=== PATIENT | female | born 1955 | race Caucasian/White ===

== ENCOUNTER 2022-07-26 06:28 | Day surgery (SDC) | payer BC, SELFPAY ==
[2022-07-26] MEDS: Tropicam./Phenyleph. (1/2.5%) 5 ML BTL OS ×3 (07:19→07:35)
[2022-07-26 07:20] VITALS: BP 150/76; PULSE 67; RESP 18; TEMP 36.6; O2SAT 96
--- NOTE | 2022-07-26 07:44 | ANES.PREOP_ITS ---
General Info Date of Service Date Performed: 07/26/22 Height: 4 ft 7 in Weight: 64.6 kg Body Mass Index (BMI): 33.0 Surgical Procedure: Operation Date: 07/26/22 08:40 Proposed Procedure Side Surgeon p Cataract Extraction with IOL Implant Left Elier Gomez MD Meds Allergies and Home Medications Allergies Allergy/AdvReac Type Severity Reaction Status Date / Time No Known Allergies Allergy Unverified 07/26/22 07:32 Home Medication Medication Instructions Recorded atorvastatin 40 mg tablet 40 mg PO DAILY 07/23/22 buspirone 5 mg tablet 5 mg PO DAILY 07/23/22 diltiazem HCl 120 mg 120 mg PO DAILY 07/23/22 capsule,extended release 24 hr, controlled lisinopril 2.5 mg tablet 5 mg PO DAILY 07/23/22 metoprolol succinate 100 mg 100 mg PO DAILY 07/23/22 tablet,extended release 24 hr calcium carbonate 600 mg-vitamin 1 tab PO DAILY 07/26/22 D3 5 mcg (200 unit) tablet Current Visit Medications: Current Medications Generic Name Dose Route Start Last Admin Trade Name Freq PRN Reason Stop Dose Admin Acetaminophen 1,000 mg 07/26/22 06:00 Acetaminophen 500 Mg Tab PO Q4H PRN PRN Miscellaneous Medication 0 ml 07/26/22 06:00 07/26/22 07:35 Tropicam./Phenyleph. (1/2.5%) 5 Ml Btl OS 1 drp DIRECTED [facility] Administration Miscellaneous Medication 0 ml 07/26/22 06:00 Prednisolone 1%, Moxifloxacin 0.5%, Nepafenac 0.1% 5ml Btl OS DIRECTED SIMON Tetracaine HCl 0 ml 07/26/22 06:00 Tetracaine 0.5% 4 Ml Btl OS DIRECTED [facility] PFS Active Problems Active Problems: Problem Status Onset Code Nuclear sclerotic cataract of left eye H25.12 Posterior subcapsular age-related cataract of left eye H25.042 Medical History Medical History (Updated 07/26/22 @ 07:32 by Monique Blair) Abdominal distension Atypical chest pain Pt. 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 Nicotine dependence Obesity GREG (obstructive sleep apnea) Psychophysiologic insomnia Snoring SVT (supraventricular tachycardia) Umbilical hernia with obstruction, without gangrene Urinary incontinence Surgical History Surgical History H/O hernia repair H/O ventral hernia repair History of cardiac cath 03/19/2021 History of carpal tunnel surgery History of intestinal surgery diverticular History of tonsillectomy and adenoidectomy Hx of colonoscopy Hx of tubal ligation S/P appendectomy Tobacco Smoking/Tobacco Use Status: Former Tobacco Use Alcohol Alcohol Intake: never Substance Use Substance use: Never Substance use type: does not use Vital Signs and Lab Results Vital Signs Most Recent Vital Signs in EMR: Most Recent Vital Signs Temp Pulse Resp BP Pulse Ox 36.6 C 67 18 150/76 H 96 07/26/22 07:20 07/26/22 07:20 07/26/22 07:20 07/26/22 07:20 07/26/22 07:20 Lab Results Blood Type / Crossmatch: No Data to Display Complete Blood Count: No Data to Display Complete Metabolic Panel: No Data to Display Liver Function Panel: No Data to Display Coagulation Panel: No Data to Display Cardiac Panel: No Data to Display Arterial Blood Gas: No Data to Display Venous Blood Gas: No Data to Display Pancreas Panel: No Data to Display Thyroid Panel: No Data to Display Infectious Disease: No Data to Display Blood Cultures: No Data to Display Toxicology Panel: No Data to Display Anesthesia Assessment and Plan Anesthesia History Personal History: No History of Anesthesia Complications Family History: No Family History of Anesthesia Complications Exercise Tolerance Exercise Tolerance: Metabolic Equivalents>4 Pertinent Negatives Pertinent Negatives: No Symptoms of GERD Cardiac & Pulmonary Exam Cardiac Exam: Normal S1/S2 Heart Sounds Pulmonary Exam: Clear Bilateral Breath Sounds Implantable Cardiac Device Does patient have a Pacemaker or an ICD?: No Airway Exam Known Difficult Airway: No Mallampati Class: 4 Mouth Opening: Narrow (< 3cm) Thyromental Distance: Greater than 3 cm Neck Range of Motion: Full ROM Neck Circumference: Thick Teeth Condition: Edentulous ASA Classification ASA Score: ASA 2 Emergency Case?: No NPO Status NPO Status: NPO Clears >2 hours, Solids >8 hours Anesthesia Plan Resuscitation Status: Full Code Anesthesia Technique: MAC Anesthesia Airway Planned: Natural Airway Monitors Used: Standard Monitors
[2022-07-26] MEDS: Tetracaine 0.5% 4 ML BTL OS (08:21)
[2022-07-26 08:22] VITALS: BMI 33.0
[2022-07-26] MEDS: Lidocaine 1% Pres-Free 5 ML VIAL (08:31)
[2022-07-26] MEDS: Phenylephrine/Lidocaine (15/10) MG/ML 1 ML VIAL (08:31)
[2022-07-26] MEDS: Balanced Salt Soln.-PLUS 500 ML BAG (08:32)
[2022-07-26] MEDS: Duovisc Viscoelastic System EACH 1 EACH (08:32)
[2022-07-26] MEDS: Povidone-Iodine Ophth 30 ML BTL (08:33)
[2022-07-26 08:48] VITALS: BP 98/71; PULSE 70; RESP 18; TEMP 36.1; O2SAT 98
--- NOTE | 2022-07-26 08:48 | W.PM.DSUDISC ---
Date of service: 07/26/22 Time of Service: 08:48 Discharge Plan Disposition Patient Disposition: Home Discharge Details Attending Provider: Elier Gomez Primary Care Provider: Maria Guadalupe Sanchez Home Meds and New Rx's Prescriptions: No Action atorvastatin 40 mg Tablet 40 mg PO DAILY buspirone 5 mg Tablet 5 mg PO DAILY metoprolol succinate 100 mg Tablet Extended Release 24 Hr 100 mg PO DAILY diltiazem HCl 120 mg Capsule,Ext.Rel 24h Degradable 120 mg PO DAILY lisinopril 2.5 mg Tablet 5 mg PO DAILY calcium carbonate-vitamin D3 [Calcium + D] 600 mg-5 mcg (200 unit) Tablet 1 tab PO DAILY Discharge Instructions Stand Alone Forms: Post-op Topical Cataract, [employer] (DSU) Discharge Orders Discharge Orders: Discharge Order (Routine); Ordered 07/26/22 Ordered By: Elier Gomez DS: Diagnosis Discharge Diagnosis (1) Nuclear sclerotic cataract of left eye: Status: Resolved (2) Posterior subcapsular age-related cataract of left eye: Status: Resolved
--- NOTE | 2022-07-26 08:48 | W.PM.OP ---
Date of service: 07/26/22 Time of Service: 08:48 Operative Note Operative Note DATE OF PROCEDURE: 07/26/22 PRE-OP DIAGNOSIS: Nuclear/posterior subcapsular cataract, left eye POST-OP DIAGNOSIS: same PROCEDURE: Cataract extraction using phacoemulsification with intraocular lens implant, left eye SURGEON: Elier Gomez ANESTHESIA TYPE: Local By Surgeon and MAC Refer to Anesthesia Record PATHOLOGY: none sent COMPLICATIONS: None Patient was transported to: same day Patient's condition: stable Implants: Del and Del Tecnis Eyhance [id number] Indications: Progressive decreased vision due to cataract, left eye Procedure Description: CATARACT SURGERY OPERATIVE REPORT PREOPERATIVE DIAGNOSIS: 1. Nuclear/posterior subcapsular cataract, left eye POSTOPERATIVE DIAGNOSIS: Same OPERATION: 1. Cataract extraction using phacoemulsification with posterior chamber intraocular lens implant, left eye. IOL: IOL Cracking Unit Operator/Model: Del & Del Tecnis Eyhance DIB00 IOL Power: + 16.5 diopters IOL Serial Number: [id number] Optic Diameter: 6.0 mm Haptic/Overall Diameter: 13.0 mm PHACO INFO: Akin Sol Voltaicsurion Vision System with OZil and Active Fluidics Cumulative Dispersed Energy (CDE): 8.07 seconds SURGEON: Elier Gomez MD, MYNOR ANESTHESIA: Monitored A [facility] (MAC), with local sub-tenon's anesthetic infiltration COMPLICATIONS: None SPECIMENS: None INDICATIONS FOR PROCEDURE: The patient is a 67-year-old lady with history of diminished visual acuity in her left eye secondary to the development of nuclear/posterior subcapsular cataract. She has a history of myopia and desires to remain myopic postoperatively. Postoperative refractive target is -2.50 diopters. She wants to be able to read without glasses postoperatively. The option of cataract surgery was offered to the patient and she wished to proceed. PROCEDURE: The correct surgical eye was identified and marked as the left eye and the pupil was dilated in the preoperative area using mydriatics and cycloplegics. The dilated pupil size was 5.5 mm. The patient elected to proceed without oral sedation. The patient was brought to the operating room where cardiopulmonary monitoring was instituted and surgical time-out was performed, confirming the correct operative eye and IOL power. Topical anesthesia was administered and ophthalmic povidone-iodine 5% was instilled into the conjunctival fornices. Lidocaine gel was applied to the cornea and the eugenio-ocular area was prepped with Betadine 10% solution and draped in the usual sterile fashion for intraocular surgery, including an aperture drape. A Tegaderm transparent film dressing was cut in half and used to cover the lashes and lid margins. Care was taken to sequester the lashes and lid margins under the Tegaderm dressing. A lid speculum was placed between the lids of the operative eye and the Akin LuxOR Revalia operating microscope was maneuvered into position. Aiden scissors were then used to make a conjunctival buttonhole approximately 6mm posterior to the limbus in the inferonasal quadrant. Blunt dissection was carried out to expose bare sclera, and a blunt-tipped sub-tenon?s anesthesia cannula was introduced and passed posteriorly along the globe where non-preserved plain lidocaine was injected into posterior sub-Tenon?s space. A sideport knife was used to make a paracentesis port superiorly/superiortemporally. Intraocular phenylephrine/lidocaine was injected int the anterior chamber.. The anterior chamber was filled with viscoelastic. A keratome knife was used to construct a 2-plane near-clear corneal tunnel extending 2.0mm into clear cornea temporally. A flap was raised on the anterior capsule and capsulorhexis forceps were used to complete a continuous curvilinear capsulorhexis of 5.5 mm. Balanced salt solution was then used to perform cortical cleaving hydrodissection and nuclear hydrodelineation until the lens could be freely rotated within the capsular bag. The lens nucleus was then disassembled and removed within the capsular bag and iris plane using phacoemulsification. Residual cortical material was removed using the 45-degree angled silicone I/A tip with 0.3mm port. The posterior capsule was carefully polished to remove as much residual lens epithelial cells as safely possible. The capsular bag was then inflated and the anterior chamber deepened with viscoelastic. The lens implant described above was inserted into the capsular bag using the Del and Del Simplicity pre-loaded injector. . A Kuglen hook was used to dial the IOL into position. Residual viscoelastic was then removed first from posterior to the IOL, then from the anterior chamber using the I/A handpiece. The lens implant was noted to center nicely within the capsular bag. The incisions were stromally hydrated, and the anterior chamber was reformed using BSS. Then 0.5cc of moxifloxacin 1.0mg/ml were injected into the capsular bag and anterior chamber. The incisions were checked with a Weck spear and found to be secure. Several drops of ophthalmic povidone-iodine 5% were then applied to the eye followed by two drops of Imprimis combination prednisolone/moxifloxacin/nepafenac solution. The drapes were removed and a clear plastic protective eye shield was placed over the eye. The patient was then returned to Same Day Surgery in stable condition.
--- NOTE | 2022-07-26 09:06 | W.ANESPOSTOP ---
Postoperative Evaluation Date, Time and Location Date Performed: 07/26/22 Time Performed: 09:01 Patient Location: Day Surgery Unit Vital Signs Most Recent Imported Vital Signs: Most Recent Vital Signs Temp Pulse Resp BP Pulse Ox 36.1 C L 70 18 98/71 L 98 07/26/22 08:48 07/26/22 08:48 07/26/22 08:48 07/26/22 08:48 07/26/22 08:48 Pain Score Most Recent Pain Score: Most Recent Pain Score Pain Level 0 07/26/22 08:48 Assessment Mental Status: Awake (Alert & Oriented to Patient Baseline) Airway and Respiratory Function: Patent airway with normal (patient baseline) respiratory exam Cardiovascular Function: Hemodynamically Stable Hydration Status: Adequately Hydrated Nausea & Vomiting: No Nausea or Vomiting Pain: Pt. Denies Any Pain Peripheral Nerve Block: Patient did not receive a nerve block
== END 2022-07-26 09:12 | disposition home or self-care (01) ==
LOC: SUR 06:29
PROVIDERS: PCP Internal Medicine; Visit Provider Ophthalmology
PROC: (CPT 66984; principal; 2022-07-26 08:30)
DX: H25.042 Posterior subcapsular polar age-related cataract, left eye
CPT/HCPCS: 66984; V2632

== ENCOUNTER 2022-08-09 07:25 | Day surgery (SDC) | payer BC, SELFPAY ==
--- NOTE | 2022-08-09 08:36 | W.ANESPRE ---
General Info Date of Service Date Performed: 08/09/22 Height: 4 ft 7 in Weight: 64.6 kg Body Mass Index (BMI): 33.0 Surgical Procedure: Operation Date: 08/09/22 10:40 Proposed Procedure Side Surgeon p Cataract Extraction with IOL Implant Right Elier Gomez MD Meds Allergies and Home Medications Allergies Allergy/AdvReac Type Severity Reaction Status Date / Time No Known Allergies Allergy Unverified 08/09/22 08:41 Home Medication Medication Instructions Recorded atorvastatin 40 mg tablet 40 mg PO DAILY 07/23/22 buspirone 5 mg tablet 5 mg PO DAILY 07/23/22 diltiazem HCl 120 mg 120 mg PO DAILY 07/23/22 capsule,extended release 24 hr, controlled lisinopril 2.5 mg tablet 5 mg PO DAILY 07/23/22 metoprolol succinate 100 mg 100 mg PO DAILY 07/23/22 tablet,extended release 24 hr calcium carbonate 600 mg-vitamin 1 tab PO DAILY 07/26/22 D3 5 mcg (200 unit) tablet Current Visit Medications: Current Medications Generic Name Dose Route Start Last Admin Trade Name Freq PRN Reason Stop Dose Admin Acetaminophen 1,000 mg 08/09/22 06:26 Acetaminophen 500 Mg Tab PO Q4H PRN PRN Miscellaneous Medication 0 ml 08/09/22 06:26 Prednisolone 1%, Moxifloxacin 0.5%, Nepafenac 0.1% 5ml Btl OD DIRECTED [facility] Miscellaneous Medication 0 ml 08/09/22 06:26 Tropicam./Phenyleph. (1/2.5%) 5 Ml Btl OD DIRECTED [facility] Tetracaine HCl 0 ml 08/09/22 06:26 Tetracaine 0.5% 4 Ml Btl OD DIRECTED [facility] PFSH Active Problems Active Problems: Problem Status Onset Code Posterior subcapsular age-related cataract, right eye H25.041 Cortical cataract of right eye H26.9 Nuclear age-related cataract, right eye H25.11 Nuclear sclerotic cataract of left eye H25.12 Posterior subcapsular age-related cataract of left eye H25.042 Medical History Medical History Abdominal distension Atypical chest pain Pt. 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 Nicotine dependence Obesity GREG (obstructive sleep apnea) Psychophysiologic insomnia Snoring SVT (supraventricular tachycardia) Umbilical hernia with obstruction, without gangrene Urinary incontinence Surgical History Surgical History H/O hernia repair H/O nasal septoplasty H/O ventral hernia repair History of cardiac cath 03/19/2021 History of carpal tunnel surgery History of intestinal surgery diverticular History of tonsillectomy and adenoidectomy Hx of colonoscopy Hx of tubal ligation S/P appendectomy [place] teeth removed Tobacco Smoking/Tobacco Use Status: Former Tobacco Use Alcohol Alcohol Intake: never Substance Use Substance use: Never Substance use type: does not use Vital Signs and Lab Results Lab Results Blood Type / Crossmatch: No Data to Display Complete Blood Count: No Data to Display Complete Metabolic Panel: No Data to Display Liver Function Panel: No Data to Display Coagulation Panel: No Data to Display Cardiac Panel: No Data to Display Arterial Blood Gas: No Data to Display Venous Blood Gas: No Data to Display Pancreas Panel: No Data to Display Thyroid Panel: No Data to Display Infectious Disease: No Data to Display Blood Cultures: No Data to Display Toxicology Panel: No Data to Display Anesthesia Assessment and Plan Anesthesia History Personal History: No History of Anesthesia Complications Family History: No Family History of Anesthesia Complications Exercise Tolerance Exercise Tolerance: Metabolic Equivalents>4 Pertinent Negatives Pertinent Negatives: No Symptoms of GERD, No Major Cardiovascular Symptoms or Complaints, No Major Pulmonary Symptoms or Complaints and No History of CVA/TIA Cardiac & Pulmonary Exam Cardiac Exam: Normal S1/S2 Heart Sounds Pulmonary Exam: Clear Bilateral Breath Sounds Implantable Cardiac Device Does patient have a Pacemaker or an ICD?: No Airway Exam Known Difficult Airway: No Mallampati Class: 4 Mouth Opening: Narrow (< 3cm) Thyromental Distance: Greater than 3 cm Neck Range of Motion: Full ROM Neck Circumference: Thick Teeth Condition: Edentulous ASA Classification ASA Score: ASA 3 Emergency Case?: No NPO Status NPO Status: NPO Clears >2 hours, Solids >8 hours Anesthesia Plan Resuscitation Status: Full Code Anesthesia Technique: MAC Anesthesia Airway Planned: Natural Airway Monitors Used: Standard Monitors
[2022-08-09 08:43] VITALS: BP 163/93; PULSE 64; RESP 16; TEMP 36.2; O2SAT 98
[2022-08-09] MEDS: Tropicam./Phenyleph. (1/2.5%) 5 ML BTL OD ×3 (08:51→09:03)
[2022-08-09 09:17] VITALS: BMI 33.0
[2022-08-09] MEDS: Tetracaine 0.5% 4 ML BTL OD (09:57)
[2022-08-09] MEDS: Balanced Salt Soln.-PLUS 500 ML BAG (10:06)
[2022-08-09] MEDS: Lidocaine 1% Pres-Free 5 ML VIAL (10:07)
[2022-08-09] MEDS: Duovisc Viscoelastic System EACH 1 EACH (10:07)
[2022-08-09] MEDS: Phenylephrine/Lidocaine (15/10) MG/ML 1 ML VIAL (10:10)
[2022-08-09] MEDS: Povidone-Iodine Ophth 30 ML BTL (10:10)
[2022-08-09 10:25] VITALS: BP 161/83; PULSE 61; RESP 16; TEMP 36.3; O2SAT 98
--- NOTE | 2022-08-09 10:25 | W.PM.DSUDISC ---
Date of service: 08/09/22 Time of Service: 10:25 Discharge Plan Disposition Patient Disposition: Home Discharge Details Attending Provider: Elier Gomez Primary Care Provider: Maria Guadalupe Sanchez Home Meds and New Rx's Prescriptions: No Action atorvastatin 40 mg Tablet 40 mg PO DAILY buspirone 5 mg Tablet 5 mg PO DAILY metoprolol succinate 100 mg Tablet Extended Release 24 Hr 100 mg PO DAILY diltiazem HCl 120 mg Capsule,Ext.Rel 24h Degradable 120 mg PO DAILY lisinopril 2.5 mg Tablet 5 mg PO DAILY calcium carbonate-vitamin D3 [Calcium + D] 600 mg-5 mcg (200 unit) Tablet 1 tab PO DAILY Discharge Instructions Stand Alone Forms: Post-op Topical Cataract, [employer] (DSU) Discharge Orders Discharge Orders: Discharge Order (Routine); Ordered 08/09/22 Ordered By: Elier Gomez DS: Diagnosis Discharge Diagnosis (1) Nuclear age-related cataract, right eye: Status: Resolved (2) Cortical cataract of right eye: Status: Resolved (3) Posterior subcapsular age-related cataract, right eye: Status: Resolved
--- NOTE | 2022-08-09 10:26 | ROE_ITS ---
Date of service: 08/09/22 Time of Service: 10:26 Operative Note Operative Note DATE OF PROCEDURE: 08/09/22 PRE-OP DIAGNOSIS: Nuclear/cortical/posterior subcapsular cataract, right eye POST-OP DIAGNOSIS: same PROCEDURE: Cataract extraction using phacoemulsification with intraocular lens implant, right eye SURGEON: Elier Gomez ANESTHESIA TYPE: Local By Surgeon and MAC Refer to Anesthesia Record ESTIMATED BLOOD LOSS: 0 PATHOLOGY: none sent COMPLICATIONS: None Patient was transported to: same day Patient's condition: stable Implants: Del & Del Tecnis Eyhance DIB00 Indications: Progressive visual loss due to cataract, right eye Procedure Description: CATARACT SURGERY OPERATIVE REPORT PREOPERATIVE DIAGNOSIS: 1. Nuclear/cortical/posterior subcapsular cataract, right eye POSTOPERATIVE DIAGNOSIS: Same OPERATION: 1. Cataract extraction using phacoemulsification with posterior chamber intraocular lens implant, right eye. IOL: IOL Beauty Sales Consultant/Model: Del & Dle Tecnis Eyhance DIB00 IOL Power: + 15.0 diopters IOL Serial Number: [id number] Optic Diameter: 6.0mm Haptic/Overall Diameter: 13.0mm PHACO INFO: Akin Travel.ruurion Vision System with OZil and Active Fluidics Cumulative Dispersed Energy (CDE): 5.27 seconds SURGEON: Elier Gomez MD, MYNOR ANESTHESIA: Monitored Anesthesia Care (MAC), with local sub-tenon's anesthetic infiltration COMPLICATIONS: None. SPECIMENS: None INDICATIONS FOR PROCEDURE: The patient is a 67-year-old lady with history of diminished visual acuity in both eyes secondary to the development of bilateral nuclear/cortical/posterior subcapsular cataract. She has a history of myopia. She has undergone cataract surgery in the left eye and is doing well postoperatively. Postoperative refractive target is -2.50 diopters. She now presents for cataract surgery in the right eye, with postoperative refractive target of -2.50 diopters. PROCEDURE: The correct surgical eye was identified and marked as the right eye and the pupil was dilated in the preoperative area using mydriatics and cycloplegics. The dilated pupil size was 5.0 mm. The patient elected to proceed without oral sedation. The patient was brought to the operating room where cardiopulmonary monitoring was instituted and surgical time-out was performed, confirming the correct operative eye and IOL power. Topical anesthesia was administered and ophthalmic povidone-iodine 5% was instilled into the conjunctival fornices. Lidocaine gel was applied to the cornea and the eugenio-ocular area was prepped with Betadine 10% solution and draped in the usual sterile fashion for intraocular surgery, including an aperture drape. A Tegaderm transparent film dressing was cut in half and used to cover the lashes and lid margins. Care was taken to sequester the lashes and lid margins under the Tegaderm dressing. A lid speculum was placed between the lids of the operative eye and the Akin LuxOR Revalia operating microscope was maneuvered into position. Aiden scissors were then used to make a conjunctival buttonhole approximately 6mm posterior to the limbus in the inferonasal quadrant. Blunt dissection was carried out to expose bare sclera, and a blunt-tipped sub-tenon?s anesthesia cannula was introduced and passed posteriorly along the globe where non- preserved plain lidocaine was injected into posterior sub-Tenon?s space. A sideport knife was used to make a paracentesis port inferotemporally. Intraocular phenylephrine/lidocaine was injected into the anterior chamber. The anterior chamber was filled with viscoelastic. A keratome knife was used to construct a 2-plane near-clear corneal tunnel extending 2.0mm into clear cornea superiortemporally. A flap was raised on the anterior capsule and capsulorhexis forceps were used to complete a continuous curvilinear capsulorhexis of 5.0 mm. The patient had constant unpredictable rapid eye movement, the eye had to be fixated with a second hand during capsulorrhexis creation. Balanced salt solution was then used to perform cortical cleaving hydrodissection and nuclear hydrodelineation until the lens could be freely rotated within the capsular bag. The lens nucleus was then disassembled and removed within the capsular bag and iris plane using phacoemulsification. Residual cortical material was removed using the I/A handpiece. The posterior capsule was carefully polished to remove as much residual lens epithelial cells as safely possible. The capsular bag was then inflated and the anterior chamber deepened with viscoelastic. The lens implant described above was inserted into the capsular bag using the Del and Ariane Simplicity pre-loaded injector. A Kuglen hook was used to dial the IOL into position. Residual viscoelastic was then removed first from posterior to the IOL, then from the anterior chamber using the I/A handpiece. The lens implant was noted to center nicely within the capsular bag. The incisions were stromally hydrated, and the anterior chamber was reformed using BSS. Then 0.5cc of moxifloxacin 1.0mg/ml were injected into the capsular bag and anterior chamber. The incisions were checked with a Weck spear and found to be secure. Several drops of ophthalmic povidone-iodine 5% were then applied to the eye followed by two drops of Imprimis combination prednisolone/moxifloxacin/nepafenac solution. The drapes were removed and a clear plastic protective eye shield was placed over the eye. The patient was then returned to Same Day Surgery in stable condition.
[2022-08-09] MEDS: Acetaminophen 500 MG TAB 1000 MG PO (10:30)
--- NOTE | 2022-08-09 10:47 | W.ANESPOSTOP ---
Postoperative Evaluation Date, Time and Location Date Performed: 08/09/22 Time Performed: 10:25 Patient Location: Day Surgery Unit Vital Signs Most Recent Imported Vital Signs: Most Recent Vital Signs Temp Pulse Resp BP Pulse Ox 36.3 C L 61 16 161/83 H 98 08/09/22 10:25 08/09/22 10:25 08/09/22 10:25 08/09/22 10:25 08/09/22 10:25 Pain Score Most Recent Pain Score: Most Recent Pain Score Pain Level 5 08/09/22 10:25 Assessment Mental Status: Awake (Alert & Oriented to Patient Baseline) Airway and Respiratory Function: Patent airway with normal (patient baseline) respiratory exam Cardiovascular Function: Hemodynamically Stable Hydration Status: Adequately Hydrated Nausea & Vomiting: No Nausea or Vomiting Pain: Pain is tolerable per patient Peripheral Nerve Block: Other (Local by Dr. Gomez)
[2022-08-09 10:52] VITALS: BP 163/83; PULSE 64; RESP 16; TEMP 36; O2SAT 94
== END 2022-08-09 10:56 | disposition home or self-care (01) ==
LOC: SUR 07:26
PROVIDERS: PCP Internal Medicine; Visit Provider Ophthalmology
PROC: (CPT 66984; principal; 2022-08-09 10:30)
DX: H25.11 Age-related nuclear cataract, right eye (principal); H25.041 Posterior subcapsular polar age-related cataract, right eye; Z98.42 Cataract extraction status, left eye
CPT/HCPCS: 66984; V2632